=== PATIENT | female | born 1985 | race African-American/Black ===

== ENCOUNTER 2016-12-13 15:39 | Emergency (ER) | payer OTHER ==
[~2016-12-13] VITALS: Ht 162.6 cm; Wt 86.2 kg
--- NOTE | ~2016-12-13 | EKG ---
PATIENT: JOSE LOAIZA UNIT #: [id number] Ventricular Rate: 92 BPM Atrial Rate: 92 BPM P-R Interval: 136 ms QRS Duration: 70 ms Q-T Interval: 338 ms QTC Calculation(Bezet): 417 ms P [place]: 61 degrees Calculated R [place]: 49 degrees Calculated T [place]: 56 degrees Diagnosis Line: Normal sinus rhythm Diagnosis Line: Nonspecific ST and T wave abnormality Diagnosis Line: Abnormal ECG Diagnosis Line: Diagnosis Line: Confirmed by DOROTA ORTIZ MD ([id number]) on Diagnosis Line: 12/14/2016 2:00:33 PM INTERPRETING MD: DIANA PELLETIER
== END 2016-12-13 20:23 | disposition home or self-care (01) ==
LOC: CED 15:39
DX: S06.0X9A Concussion with loss of consciousness of unspecified duration, initial encounter (principal); V43.52XA Car driver injured in collision with other type car in traffic accident, initial encounter; Y92.410 Unspecified street and highway as the place of occurrence of the external cause
CPT/HCPCS: 93005; 99284